=== PATIENT | female | born 1980 | race Caucasian/White ===

== ENCOUNTER 2019-06-28 13:56 | Emergency (ER) | payer BC ==
[~2019-06-28] VITALS: Ht 152.4 cm; Wt 72.4 kg
[~2019-06-28 13:56] MED LIST: CEFP200T18 PO; CEPH-443 PO; ERYT1OIN6 BOTH EYES; SULF1TAB31 PO
[2019-06-28 14:01] VITALS: BP 144/83; PULSE 89; RESP 18; Ht 152.4 cm; Wt 72.4 kg
== END 2019-06-28 15:46 | disposition home or self-care (01) ==
LOC: FTE 13:56
DX: L03.213 Periorbital cellulitis (principal)
CPT/HCPCS: 99283